=== PATIENT | male | born 1975 | race Caucasian/White ===

== ENCOUNTER 2017-05-31 13:45 | Emergency (ER) | payer OTHER, MEDICAID ==
[~2017-05-31] VITALS: Ht 177.8 cm; Wt 129.3 kg
[~2017-05-31 13:45] MED LIST: ACETAMINOPHEN-1 EAC1 PO; ACETAMINOPHEN325 M1 PO; AMOXICILLIN 50500 M1 PO; AMOXICILLIN 50500 MG PO; AMOXICILLIN500 M1 PO; BENADRYL25 MG PO; CLOVE OIL; DEPAKOTE500 MG PO; FLEXERIL PO; HYDROCODONE-AP1 EAC6 PO; HYDROCODONE-APA1 TA1 PO; IBUPROFEN 200200 M1 PO; IBUPROFEN 800800 M1 PO; IBUPROFEN 800800 MG PO; KEFLEX500 MG PO; LITHIUM CARBON300 M3 PO; MEDROL DOSPAK21 TA1 PO; MUCINEX TA600 MG/TA2 PO; NAPROSYN500 MG PO; NOHOMEMEDICATIONS; NORCO 5-325 TA1 EACH PO; PENICILLIN VK500 M1 PO; PREDNISONE 20 M20 MG PO; PROAIR HFA8.5 GM INH; ROBAXIN 750 MG750 MG PO; ROBAXIN500 MG PO; TRAMADOL 50 MG50 MG PO; ULTRAM 50MG TAB50 MG PO; ULTRAM50 MG PO; ZOFRAN ODT4 MG PO; ZOFRAN4 MG PO; [UNRECOGNIZED DRUG - REMARK]
[2017-05-31] MEDS ORDERED: ZOFRAN ODT4 MG PO (15:18)
[2017-05-31] MEDS ORDERED: BUTALB-APAP-CA1 EACH PO (15:18)
[2017-05-31 15:37] VITALS: BP 140/94
== END 2017-05-31 15:37 | disposition home or self-care (01) ==
LOC: M.ERS 13:45
DX: R51 Headache (principal); F31.9 Bipolar disorder, unspecified; Z88.8 Allergy status to other drugs, medicaments and biological substances

== ENCOUNTER 2017-07-31 13:51 | Emergency (ER) | payer OTHER, MEDICAID ==
[~2017-07-31] VITALS: Ht 177.8 cm; Wt 127.0 kg
[~2017-07-31 13:51] MED LIST changes: +BUTALB-APAP-CA1 EACH PO
[2017-07-31] MEDS ORDERED: NORCO 5-325 TA1 EACH PO (14:12)
[2017-07-31] MEDS ORDERED: PREDNISONE 10 M10 MG PO (14:12)
[2017-07-31] MEDS ORDERED: FLEXERIL PO (14:12)
[2017-07-31 14:25] VITALS: BP 173/110
== END 2017-07-31 14:26 | disposition home or self-care (01) ==
LOC: M.ERS 13:51
DX: M54.31 Sciatica, right side (principal); F31.9 Bipolar disorder, unspecified; F17.200 Nicotine dependence, unspecified, uncomplicated; Z88.8 Allergy status to other drugs, medicaments and biological substances

== ENCOUNTER 2017-08-13 11:14 | Emergency (ER) | payer OTHER, MEDICAID ==
[~2017-08-13] VITALS: Ht 177.8 cm; Wt 127.0 kg
[~2017-08-13 11:14] MED LIST changes: +PREDNISONE 10 M10 MG PO
[2017-08-13 11:43] LABS: URINE BILIRUBIN NEGATIVE (Negative); URINE BLOOD NEGATIVE (Negative); URINE CLARITY CLEAR; URINE COLOR YELLOW; URINE GLUCOSE-RANDOM NEGATIVE (Negative); URINE KETONES NEGATIVE (Negative); URINE LEUKOCYTES NEGATIVE (Negative); URINE NITRITE NEGATIVE (Negative); URINE PROTEIN NEGATIVE (Negative); URINE SPECIFIC GRAVITY 1.025 (1.005-1.030); URINE UROBILINOGEN 0.2 E.U./dl (0.2-1.0)
[2017-08-13 12:04] LABS: ABSOLUTE BASOPHILS 0.1 thou/uL (0.0-0.2); ABSOLUTE EOSINOPHILS 0.2 thou/uL (0.0-0.7); ABSOLUTE MONOCYTES 0.6 thou/uL (0.0-1.2); BASOPHILS 0.9 %; EOSINOPHILS 2.9 %; HEMATOCRIT 40.4 % (42.0-52.0); HEMOGLOBIN 13.6 gm/dL (14.0-18.0); LYMPHOCYTES 29.3 %; MCH 31.8 pg (26.0-34.0); MCHC 33.7 g/dL (28.0-37.0); MCV 94.3 fL (80.0-100.0); MONOCYTES 8.6 %; MPV 8.3 fl. (7.2-11.1); NUCLEATED RBCS 0 /100WBC; PLATELET COUNT* 344 thou/uL (150-400); POLYS 58.3 %; RBC 4.28 mil/uL (4.50-6.00); RDW-CV 14.3 % (10.5-14.5); WBC 6.9 thou/uL (4.0-11.0)
[2017-08-13 12:10] LABS: CALCIUM 8.4 mg/dL (8.5-10.1); POTASSIUM 3.6 mmol/L (3.5-5.1)
[2017-08-13 12:14] LABS: ALBUMIN 3.8 g/dL (3.4-5.0); TOTAL BILIRUBIN 0.4 mg/dL (<0.1-1.0); TOTAL PROTEIN 7.1 g/dL (6.4-8.2)
[2017-08-13 13:51] VITALS: BP 153/109
== END 2017-08-13 13:51 | disposition home or self-care (01) ==
LOC: M.ERS 11:14
PROVIDERS: Physician Assistant
DX: K42.9 Umbilical hernia without obstruction or gangrene (principal); F31.9 Bipolar disorder, unspecified; Z88.8 Allergy status to other drugs, medicaments and biological substances

== ENCOUNTER 2018-04-12 13:15 | Emergency (ER) | payer OTHER ==
[~2018-04-12] VITALS: Ht 177.8 cm; Wt 131.5 kg
[2018-04-12] MEDS ORDERED: IBUPROFEN 800800 M1 PO (13:25)
[2018-04-12] MEDS ORDERED: TRAMADOL 50 MG50 MG PO (13:57)
[2018-04-12 14:16] VITALS: BP 134/94
== END 2018-04-12 14:16 | disposition home or self-care (01) ==
LOC: M.ERS 13:15
DX: M54.5 Low back pain (principal); F17.200 Nicotine dependence, unspecified, uncomplicated; F31.9 Bipolar disorder, unspecified; Z88.8 Allergy status to other drugs, medicaments and biological substances

== ENCOUNTER 2018-06-02 11:15 | Emergency (ER) | payer OTHER ==
[~2018-06-02] VITALS: Ht 177.8 cm; Wt 131.5 kg
[2018-06-02] MEDS ORDERED: HYDROCODONE-AP1 EAC6 PO (11:59)
[2018-06-02] MEDS ORDERED: PREDNISONE50 MG PO (11:59)
[2018-06-02 12:13] VITALS: BP 142/99
== END 2018-06-02 12:14 | disposition home or self-care (01) ==
LOC: M.ERS 11:15
DX: M54.41 Lumbago with sciatica, right side (principal); M54.42 Lumbago with sciatica, left side; G89.29 Other chronic pain; F31.9 Bipolar disorder, unspecified; Z88.8 Allergy status to other drugs, medicaments and biological substances